=== PATIENT | male | born 2000 | race Caucasian/White ===

== ENCOUNTER 2023-08-15 08:11 | Emergency (ER) | payer BC, SELFPAY ==
[2023-08-15 09:00] VITALS: BP 166/99; PULSE 79; RESP 18; TEMP 36.7; O2SAT 97; BMI 33.9
--- NOTE | 2023-08-15 09:06 | EXP.UTC ---
Discharge Plan Disposition Patient Disposition: Home, Self-Care Condition: Good Referrals Follow up/Referrals: Fransisco Gavin [Primary Care Provider] - See instructions Activity Restrictions/Add. Instructions Additional Instructions/Restrictions: Debrox are the over the counter ear drops that help to soften ear wax and aid in its removal. Please ask your pharmacist about this and their directions for use. Don't insert anything into your ear. Follow up with your primary care physican. GO TO THE ER FOR ANY WORSENING SYMPTOMS OR CONCERNS Clinical Impressions Clinical Impression: Cerumen impaction Instructions Patient Instructions: DI for Cerumen Impaction, Cerumen Impaction Discharge ED Provider: Tim Tapia [facility] [place] HPI General Stated complaint: right ear pain Time Seen by Provider: 08/15/23 09:06 History of Present Illness Provider Complaint: He states that for the past 2 days he has not been able to hear well out of his right ear. He has a history of getting cerumen impactions in both ear. He states last night he tried to let his girlfriend clean the ear out manually but it began to hurt and have blood from the opening, so they stopped. He states that he has to be able to hear out of his right ear because of his job, so he request to have the ear irrigated out. He denies any complaints related to his other ear. Related Data Allergies Allergy/AdvReac Type Severity Reaction Status Date / Time No Known Allergies Allergy Verified 08/15/23 09:19 [facility] Disclaimer: The information contained in this section may have been updated after the patient was seen, as this information can be updated by other users. Social History Smoking Status: Never smoker alcohol intake: never current occupational status: employed Travel in the last 8 weeks: None ROS Obtained: Yes All systems reviewed & no additional complaints except as documented Constitutional Constitutional: Denies chills and Denies fever(s) Eyes Eyes: Denies eye discharge ENT Ears, Nose, Mouth, and Throat: Reports as per HPI, Denies dizziness, Denies otalgia and Denies sore throat Cardiovascular Cardiovascular: Denies chest pain Respiratory Respiratory: Denies shortness of breath, Denies chest congestion, Denies cough, Denies stridor and Denies wheezing Gastrointestinal Gastrointestingal: Denies nausea or vomiting Musculoskeletal Musculoskeletal: Reports system reviewed and no additional complaints, except as documented and Denies arthralgias Integumentary/Breasts Skin/Breast: Denies rash Neurologic Neurologic: Denies dizziness and Denies paresthesias Allergic/Immunologic Allergic/Immunologic: Denies wheezing Physical Exam General General appearance: alert and in no apparent distress Head Head exam: atraumatic, normocephalic and normal inspection Eye Eye exam: Present normal appearance, PERRL and EOMI ENT ENT exam: Present normal oropharynx, mucous membranes moist and normal external ear exam Expanded ENT Exam TM/Canal exam: Right TM: cerumen impaction Neck Neck exam: Present normal inspection, full ROM and trachea midline; Absent meningismus or lymphadenopathy Chest Chest inspection: Present normal inspection and symmetric chest wall rise; Absent tenderness Respiratory Respiratory exam: Present normal lung sounds bilaterally; Absent respiratory distress Cardiovascular Cardiovascular exam: Present regular rate and normal rhythm; Absent JVD Abdominal Exam Abdominal exam: Present soft and normal bowel sounds; Absent distention, tenderness or guarding Extremities Exam Extremities exam: Present normal inspection, full ROM and normal capillary refill; Absent calf tenderness Back Exam Back exam: Present normal inspection; Absent tenderness Neurological Exam Neurological exam: Present alert and oriented X3 Psychiatric Psychiatric exam: Present normal affect and normal mood Skin Skin exam: Present warm, dry, intact and normal color Lympha
[2023-08-15 09:54] VITALS: BP 166/99; PULSE 79; RESP 18; TEMP 36.7; O2SAT 97
== END 2023-08-15 09:54 | disposition home or self-care (01) ==
PROVIDERS: Emergency Provider Nurse Practitioner Family; PCP Pediatrics
DX: H92.01 Otalgia, right ear (principal); H61.21 Impacted cerumen, right ear
CPT/HCPCS: 69209; 99204; 99213; G0463

== ENCOUNTER 2024-02-18 15:18 | Emergency (ER) | payer BC, SELFPAY ==
[2024-02-18 15:19] VITALS: BP 158/103; BP 178/123; PULSE 112; PULSE 96; RESP 18; RESP 20; TEMP 36.8; TEMP 37.2; O2SAT 96; O2SAT 99; BMI 29.2; BMI 33.9
--- NOTE | 2024-02-18 15:28 | ED_ITS ---
<Statement entered by Imelda Rivera MD - 02/18/24 22:56> I was consulted by the REN, and we discussed the complexity of the problems being addressed. I approved the treatment and management plan for this patient's care in the emergency department, thus performing a substantive portion of the medical decision making. Imelda Rivera MD, [place], FACEP Discharge Plan Disposition Patient Disposition: Home, Self-Care Condition: Good Prescriptions Prescriptions: New ondansetron 4 mg tablet,disintegrating 4 mg PO Q6H PRN (Reason: nausea and vomiting) Qty: 10 0RF ketorolac 10 mg tablet 10 mg PO Q6H PRN (Reason: pain) 2 Days Qty: 10 0RF tamsulosin 0.4 mg capsule 0.4 mg PO HS Qty: 10 0RF Referrals Follow up/Referrals: Provider,MD Dino [Primary Care Provider] - See instructions Carlton Valenzuela MD [Referring] - See instructions Activity Restrictions/Add. Instructions Additional Instructions/Restrictions: Please strain all of your urine and keep retained stone for evaluation. I referred you to urology please call tomorrow make an appointment. I have called to a nausea medicine pain medicine and a ureter dilator. Return to ER for any worsening signs or symptoms as needed Clinical Impressions Clinical Impression: Ureterolithiasis Instructions Patient Instructions: DI for Kidney Stones Discharge ED Provider: Imelda Rivera General Adult HPI General Chief complaint: Abdominal Pain Stated complaint: abdomen pain,vomiting Time Seen by Provider: 02/18/24 15:22 History of Present Illness HPI narrative: Patient presents for evaluation of left-sided abdominal pain. Patient states that pain began approximately 2 hours prior to arrival. Patient states the pain started suddenly without any provocation. He has no significant past medical history and is on no home medications. He denies NSAID use alcohol abuse diarrhea hematuria flank pain chest pain shortness of breath fever chills hemoptysis hematochezia melena hematemesis. Related Data Previous Rx's Medication Instructions Recorded ketorolac 10 mg tablet 10 mg PO Q6H PRN pain 2 days #10 02/18/24 tabs ondansetron 4 mg disintegrating 4 mg PO Q6H PRN nausea and 02/18/24 tablet vomiting #10 tabs tamsulosin 0.4 mg capsule 0.4 mg PO HS #10 caps 02/18/24 Allergies Allergy/AdvReac Type Severity Reaction Status Date / Time No Known Allergies Allergy Verified 08/15/23 09:19 [facility] Disclaimer: The information contained in this section may have been updated after the patient was seen, as this information can be updated by other users. Social History (Updated 08/15/23 @ 16:34 by Tim Tapia APRN) Smoking Status: Never smoker alcohol intake: never current occupational status: employed Travel in the last 8 weeks: None ROS Obtained: Yes Systems reviewed as appropriate & no additional complaints except as documented Physical Exam General General appearance: alert and in no apparent distress Head Head exam: atraumatic and normal inspection Respiratory Respiratory exam: Present normal lung sounds bilaterally Cardiovascular Cardiovascular exam: Present regular rate and normal rhythm Abdominal Exam Abdominal exam: Present soft, tenderness (Patient is tender to palpation in the left sided quadrants without rebound or guarding or rigidity. Bowel sounds are normal active) and normal bowel sounds; Absent guarding, rebound or rigidity Extremities Exam Extremities exam: Present normal inspection and full ROM Back Exam Back exam: Present normal inspection and full ROM; Absent tenderness, CVA tenderness (R) or CVA tenderness (L) Neurological Exam Neurological exam: Present alert and oriented X3 Medical Decision Making Medical Records Medical records reviewed: Yes I reviewed the patient's medical records. [place] Inquiry Pt receiving controlled substance: No Vital Signs: 02/18/24 15:19 02/18/24 15:19 Temperature 98.2 F 98.9 F Temperature Source Oral Oral Pulse Rate [Left] 96 H 112 H Respiratory Rate 20 18 Blood Pressure [Left Arm] 158/103 H 178/123 H Blood Pressure Mean [Left Arm] 121 141 Blood Pressure Source [Left Arm] Automatic Cuff 02 Sat by Pulse Oximetry 99 96 Oxygen Delivery Method Room Air Room Air Lab Data Lab results reviewed: Yes I reviewed the patient's lab results. Lab Results 02/18/24 15:33: WBC 11.3 H, RBC 5.23, Hgb 16.2, Hct 46.4, MCV 88.6, MCH 30.9, MCHC 34.8, RDW 13.6, Plt Count 208, MPV 8.7, Neut % (Auto) 71.4, Lymph % (Auto) 22.5, [place] % (Auto) 4.1, Eos % (Auto) 1.1, Baso % (Auto) 0.8, Neut # (Auto) 8.1 H, Lymph # (Auto) 2.6, [place] # (Auto) 0.5, Eos # (Auto) 0.1, Baso # (Auto) 0.1, PT 11.1, INR 1.03, Sodium 140, Potassium 4.1, Chloride 105, Carbon Dioxide 23, A [place] 16.1 H, BUN 15, Creatinine 1.60 H, Estimated Creat Clear 77, Estimated GFR 53 L, Est GFR ( Amer) 64, Glucose 106 H, Lactate 2.5 H, Calcium 9.8, Total Bilirubin 0.8, AST 53, ALT 52, Alkaline Phosphatase 67, Total Protein 8.8 H, Albumin 4.8, Globulin 4.0 H, Albumin/Globulin Ratio 1.2, Lipase 159 02/18/24 16:10: Urine Color Yellow, Urine Appearance Clear, Urine pH 6.0, Ur Specific [place] >= 1.030, Urine Protein 3+, Urine Glucose (UA) Negative, Urine Ketones Trace, Urine Blood 3+, Urine Nitrate Negative, Urine Bilirubin 1+ A, Urine Urobilinogen 1.0, Ur Leukocyte Esterase Negative, Urine RBC 5-10, Urine WBC None, Ur Squamous Epith Cells None, Urine Bacteria None 02/18/24 15:33 02/18/24 15:33 Orders (Tests/Meds): ED MEDICATIONS Discontinued Medications Generic Name Dose Route Start Last Admin Trade Name Zachq PRN Reason Stop Dose Admin Acetaminophen 1,000 mg 02/18/24 15:31 02/18/24 15:42 Acetaminophen 1,000mg/100ml Vial IV 02/18/24 15:32 1,000 mg ONCE ONE Administration Lactated Ringer's 1,000 mls @ 999 mls/hr 02/18/24 15:31 02/18/24 15:42 Lactated Ringer's 1000 Ml Bag IV 02/18/24 16:31 999 mls/hr .Q1H1M ONE Administration Iopamidol 75 ml 02/18/24 15:49 02/18/24 15:50 Iopamidol-370 (76%);100ml Bottle IV 02/18/24 15:50 75 ml ONCE ONE Administration Ketorolac Tromethamine 15 mg 02/18/24 15:31 02/18/24 15:43 Ketorolac 30mg/Ml Vial IV 02/18/24 15:32 15 mg ONCE ONE Administration Ondansetron HCl 4 mg 02/18/24 15:31 02/18/24 15:43 Ondansetron 4mg/2ml Vial IV 02/18/24 15:32 4 mg ONCE ONE Administration Sodium Chloride 10 ml 02/18/24 15:49 02/18/24 15:50 Sodium Chloride 0.9% 10ml Syr (Rad Only) IV 02/18/24 15:50 10 ml ONCE ONE Administration ORDERS Category Date Time Status CT abdomen pelvis w con Stat Cat Scan 02/18/24 15:31 Completed CBC w/Auto Diff [Complete Blood Count Auto Diff] Stat Lab 02/18/24 15:33 Completed CMP [Comprehensive Metabolic Panel] Stat Lab 02/18/24 15:33 Completed INR [Prothrombin Time INR] Stat Lab 02/18/24 15:33 Completed Lactic Acid Stat Lab 02/18/24 15:33 Completed Lipase Stat Lab 02/18/24 15:33 Completed UA [Urinalysis and Microscopic] Stat Lab 02/18/24 16:10 Completed Medical Decision Narrative: In summary patient is a 23-year-old male who presents to the emergency department for evaluation of abdominal pain. Patient is particular with a blood pressure of 178/123 and tachycardic with a heart rate of 112 satting at 99% on room air breathing 20 times a minute upon arrival, with a temperature of 98.2. Physical exam is remarkable for exquisite left-sided quadrant abdominal pain without rebound or guarding or rigidity. Patient has no CVA tenderness to percussion. Bowel sounds are normal active. Differential diagnosis includes bowel obstruction versus kidney stone versus sigmoid diverticulitis versus hollow viscus perforation versus acute pancreatitis etc. Initial workup will be conducted with hematologic labs, CT scan abdomen pelvis with contrast, urinalysis. Initial interventions include fluid bolus Toradol Tylenol. Initial workup reviewed by me and my informal interpretation of his CT scan abdomen pelvis shows a kidney stone at the the left UVJ with slight hydroureter with a creatinine of 1.6 and GFR of 77 with a lactate of 2.5 and the remainder of his hematologic labs are nonactionable. Upon repeat evaluation patient has had moderate improvement in his discomfort after initial intervention. Given this patient is appropriate for discharge for a trial of passage and referral to urology and a prescription for tamsulosin Zofran and Toradol. Critical Care Critical Care Time Critical Care Time: No
--- NOTE | 2024-02-18 15:31 | CT_ITS ---
PROCEDURE INFORMATION: Exam: CT Abdomen And Pelvis With Contrast Exam date and time: 02/18/2024 3:50 PM Age: 23 years old Clinical indication: Abdominal pain; Additional info: Acute abdominal pain, left-sided TECHNIQUE: Imaging protocol: Computed tomography of the abdomen and pelvis with contrast. Radiation optimization: All CT scans at this facility use at least one of these dose optimization techniques: automated exposure control; mA and/or kV adjustment per patient size (includes targeted exams where dose is matched to clinical indication); or iterative reconstruction. Contrast material: ISOVUE; Contrast volume: 75 ml; Contrast route: IV; COMPARISON: No relevant prior studies available. FINDINGS: Liver: Mild hepatic steatosis with foci of fatty sparing adjacent to the gallbladder fossa. No hepatomegaly or liver lesions. Gallbladder and bile ducts: Normal. No calcified stones. No ductal dilation. Pancreas: Normal. No ductal dilation. Spleen: 7 mm hypervascular nodule in the spleen is too small to characterize but is likely a hemangioma. No splenomegaly. Adrenal glands: Normal. No mass. Kidneys and ureters: Mild left hydronephrosis and ureterectasis secondary to a 3 x 2 mm calculus at the ureterovesical junction. No renal masses or cysts. Stomach and bowel: Unremarkable. No obstruction. No mucosal thickening. Appendix: No evidence of appendicitis. Intraperitoneal space: Unremarkable. No free air. No significant fluid collection. Vasculature: Unremarkable. No abdominal aortic aneurysm. Lymph nodes: Unremarkable. No enlarged lymph nodes. Urinary bladder: Unremarkable as visualized. Reproductive: Unremarkable as visualized. Bones/joints: Unremarkable. No acute fracture. Soft tissues: Mild gynecomastia. IMPRESSION: 1. Mild left hydronephrosis and ureterectasis secondary to a 3 x 2 mm calculus at the ureterovesical junction. 2. Hepatic steatosis.
[2024-02-18] MEDS: LACTATED RINGERS 1000ML 1,000 ML 999 ML IV (15:42)
[2024-02-18] MEDS: ACETAMINOPHEN 1,000MG/100ML VIAL 1000 MG IV (15:42)
[2024-02-18] MEDS: KETOROLAC 30MG/ML VIAL 15 MG IV (15:43)
[2024-02-18] MEDS: ONDANSETRON 4MG/2ML VIAL 4 MG IV (15:43)
[2024-02-18 15:44] LABS: Basophils # 0.1 K/mm3 (0-0.2); Basophils % 0.8 % (0.1-2.0); Eosinophils # 0.1 K/mm3 (0.0-0.4); Eosinophils % 1.1 % (0.1-12.0); Hematocrit 46.4 % (42.0-52.0); Hemoglobin 16.2 g/dL (14.1-18.0); Lymphocytes # 2.6 K/mm3 (0.7-4.5); Lymphocytes % 22.5 % (10-50); Mean Corpuscular HGB Conc 34.8 g/dL (31.8-35.4); Mean Corpuscular Hemoglobin 30.9 pg (27.0-31.2); Mean Corpuscular Volume 88.6 fl (80-94); Mean Platelet Volume 8.7 fl (7.4-10.4); Monocytes # 0.5 K/mm3 (0.1-1.0); Monocytes % 4.1 % (1.7-9.3); Neutrophils # 8.1 K/mm3 (1.8-7.8); Neutrophils % 71.4 % (37.0-80.0); Platelet Count 208 K/mm3 (142-424); Red Blood Count 5.23 M/mm3 (4.60-6.20); Red Cell Distribution Width 13.6 % (11.5-17.5); White Blood Count 11.3 K/mm3 (4.8-10.8)
[2024-02-18 15:47] LABS: Chloride 105 mmol/L (98-107)
[2024-02-18 15:48] LABS: Potassium 4.1 mmoL/L (3.5-5.1); Sodium 140 mmol/L (136-145)
[2024-02-18 15:50] LABS: Alanine Aminotransferase 52 U/L (12-78); Anion Gap 16.1 mEq/L (5-15); Aspartate Amino Transferase 53 U/L (17-59); Blood Urea Nitrogen 15 mg/dl (9-20); Carbon Dioxide 23 mmol/L (22.0-30.0); Creatinine Clearance Estimated 77 mL/min (50-200); Estimated Glomerular Filt Rate 53 ml/min (>60); GFR (African American) 64 ML/MIN (>60); INR 1.03 (0.9-1.1); Prothrombin Time 11.1 seconds (10.1-12.5)
[2024-02-18] MEDS: SODIUM CHLORIDE 0.9% 10ML SYR (RAD ONLY) 10 ML IV (15:50)
[2024-02-18] MEDS: IOPAMIDOL-370 (76%);100ML BOTTLE 75 ML IV (15:50)
[2024-02-18 15:51] LABS: Albumin Level 4.8 g/dl (3.5-5.0); Albumin/Globulin Ratio 1.2 (1.1-1.8); Alkaline Phosphatase 67 U/L (38-126); Bilirubin,Total 0.8 mg/dl (0.2-1.3); Calcium 9.8 mg/dl (8.4-10.2); Glucose 106 mg/dl (74-100); Lactic Acid 2.5 mmol/L (0.7-2.1); Lipase 159 U/L (23-300); Total Protein,Serum 8.8 g/dl (6.3-8.2)
--- NOTE | 2024-02-18 15:53 | PC.NURSE ---
Dr. Rivera at bedside
[2024-02-18 16:14] LABS: Microscopic, Urine URINE MICROSCOPIC (MICROSCOPIC)
[2024-02-18 16:32] LABS: Appearance,Urine CLEAR (Clear); Blood, Urine 3+ (Negative); Color,Urine YELLOW (Yellow); Glucose,Urine (UA) Negative (Negative); Ketones,Urine TRACE (Negative); Leukocyte Esterase,Urine Negative (Negative); Nitrate,Urine Negative (Negative); Protein,Urine 3+ (Negative); Specific Gravity, Urine >= 1.030 (1.005-1.030)
[2024-02-18 16:34] LABS: Bilirubin,Urine 1+ (Negative)
[2024-02-18 17:39] VITALS: BP 146/89; PULSE 63; RESP 20; TEMP 37.1; O2SAT 97
[2024-02-18] MEDS: TAMSULOSIN 0.4MG CAPSULE 0.400000000000000022 MG PO (17:43)
--- NOTE | 2024-02-18 17:51 | PC.NURSE ---
Medications transferred to [facility] in [place], [place]. I called the pharmacy and let them the the pt is headed there directly. I also advised them he did have an IV dose of toradol while in the ER
[2024-02-18 19:39] LABS: Reflex Lactic Add Lactic Reflex
== END 2024-02-18 17:49 | disposition home or self-care (01) ==
PROVIDERS: Physician Assistant; Emergency Provider Student in an Organized Health Care Education/Training Program
DX: R10.32 Left lower quadrant pain (principal); N13.0 Hydronephrosis with ureteropelvic junction obstruction; R74.02 Elevation of levels of lactic acid dehydrogenase [LDH]; R00.0 Tachycardia, unspecified; R03.0 Elevated blood-pressure reading, without diagnosis of hypertension
CPT/HCPCS: 74177; 80053; 81001; 83605; 83690; 85025; 85610; 96361; 96374; 96375; 99285; J0131; J1885; J2405; J7120; Q9967